=== PATIENT | female | born 1955 | race Caucasian/White ===

== ENCOUNTER → 2021-03-08 10:07 | Outpatient (CLI) | payer MEDICARE, OTHER, SELFPAY ==
[2021-03-08 19:20] LABS: Alanine Aminotransferase 17 IU/L (<35); Albumin 4.2 g/dL (3.5-5.0); Albumin Globulin Ratio 1.6 (1.0-2.8); Alkaline Phosphatase 91 U/L (38-126); Aspartate Aminotransferase 25 IU/L (14-36); BUN Creatinine Ratio 20.3 (6-22); Bilirubin Total 0.7 mg/dL (0.2-1.3); Blood Urea Nitrogen 13 mg/dL (7-17); Calcium 10.1 mg/dL (8.4-10.2); Carbon Dioxide 31 mmol/L (22-32); Chloride 102 mmol/L (98-107); Cholesterol 189 mg/dL (140-199); Estimated Glomerular Filt Rate > 60.0 mL/min (>60); Globulin 2.6 g/dL (1.7-4.1); Glucose 101 mg/dL (80-110); HDL Cholesterol 81 mg/dL (40-60); HEMOLYSIS < 15 (0-50); LDL Cholesterol Calculated 95 mg/dL (<100); Potassium 4.7 mmol/L (3.4-5.1); Sodium 134 mmol/L (137-145); Total Protein 6.8 g/dL (6.3-8.2); Triglycerides 65 mg/dL (35-150)
[2021-03-08 19:33] LABS: Add Manual Diff / Slide Review NO; Basophils Absolute Auto 100 /uL (0-100); Basophils Percent Auto 1.2 % (0-2); Eosinophils Absolute Auto 200 /uL (0-450); Eosinophils Percent Auto 2.4 % (2-4); Hematocrit 39.1 % (36-46); Hemoglobin 12.7 g/dL (12.0-16.0); Lymphocytes Absolute Auto 1600 /uL (1100-4500); Lymphocytes Percent Auto 23.1 % (25-40); Mean Corpuscular HGB Conc 32.6 % (30-36); Mean Corpuscular Hemoglobin 26.8 PG (26-34); Mean Corpuscular Volume 82.4 fL (80-100); Monocytes Absolute Auto 600 /uL (0-900); Monocytes Percent Auto 8.1 % (3-14); Neutrophils Absolute Auto 4600 /uL (1500-7000); Neutrophils Percent Auto 65.2 % (50-75); Platelet Count 280 X10^3/uL (150-400); Red Blood Cell Count 4.74 X10^6/uL (4.0-5.2); Red Cell Distribution Width 14.2 % (11.6-14.8); White Blood Cell Count 7.1 X10^3/uL (4.5-11.0)
== END ==
PROVIDERS: PCP Physician Assistant; Referring Provider Physician Assistant; Visit Provider Physician Assistant
DX: I25.118 Atherosclerotic heart disease of native coronary artery with other forms of angina pectoris (principal); E78.5 Hyperlipidemia, unspecified; I10 Essential (primary) hypertension
CPT/HCPCS: 80053; 80061; 85025

== ENCOUNTER → 2021-07-06 11:55 | Outpatient (CLI) | payer MEDICARE, OTHER, SELFPAY ==
[2021-07-06 19:10] LABS: BUN Creatinine Ratio 20.2 (6-22); Blood Urea Nitrogen 17 mg/dL (7-17); Calcium 9.6 mg/dL (8.4-10.2); Carbon Dioxide 27 mmol/L (22-32); Chloride 98 mmol/L (98-107); Estimated Glomerular Filt Rate > 60 mL/min (>60); Glucose 148 mg/dL (80-110); HEMOLYSIS < 15 (0-50); Potassium 4.8 mmol/L (3.4-5.1); Sodium 134 mmol/L (137-145)
== END ==
PROVIDERS: PCP Physician Assistant; Visit Provider Physician Assistant
DX: E87.1 Hypo-osmolality and hyponatremia (principal)
CPT/HCPCS: 80048

== ENCOUNTER → 2021-07-15 10:49 | Outpatient (CLI) | payer MEDICARE, OTHER, SELFPAY ==
[2021-07-15 20:04] LABS: Alanine Aminotransferase 19 IU/L (<35); Albumin 4.4 g/dL (3.5-5.0); Albumin Globulin Ratio 1.7 (1.0-2.8); Alkaline Phosphatase 85 U/L (38-126); Aspartate Aminotransferase 31 IU/L (14-36); BUN Creatinine Ratio 22.2 (6-22); Bilirubin Total 0.8 mg/dL (0.2-1.3); Blood Urea Nitrogen 14 mg/dL (7-17); Calcium 9.6 mg/dL (8.4-10.2); Carbon Dioxide 25 mmol/L (22-32); Chloride 101 mmol/L (98-107); Estimated Glomerular Filt Rate > 60 mL/min (>60); Globulin 2.6 g/dL (1.7-4.1); Glucose 98 mg/dL (80-110); HEMOLYSIS 25 (0-50); Potassium 4.7 mmol/L (3.4-5.1); Sodium 133 mmol/L (137-145)
[2021-07-15 20:05] LABS: Hemoglobin A1C% w Est Avg Glu 5.9 % (4.0-6.0)
[2021-07-20 13:09] LABS: Osmolality Urine 442 mOsmol/kg (.); Osmolality, Serum 278 mOsmol/kg (280-301)
== END ==
PROVIDERS: PCP Physician Assistant; Visit Provider Physician Assistant
DX: R73.09 Other abnormal glucose (principal); E87.1 Hypo-osmolality and hyponatremia
CPT/HCPCS: 80053; 83036; 83930; 83935

== ENCOUNTER → 2021-08-10 08:49 | Outpatient (CLI) | payer MEDICARE, OTHER, SELFPAY ==
[2021-08-10 19:41] LABS: BUN Creatinine Ratio 23.2 (6-22); Blood Urea Nitrogen 16 mg/dL (7-17); Calcium 9.8 mg/dL (8.4-10.2); Carbon Dioxide 29 mmol/L (22-32); Chloride 99 mmol/L (98-107); Estimated Glomerular Filt Rate > 60 mL/min (>60); Glucose 105 mg/dL (80-110); HEMOLYSIS < 15 (0-50); Potassium 4.7 mmol/L (3.4-5.1); Sodium 136 mmol/L (137-145)
[2021-08-10 20:12] LABS: Cortisol AM (Before 10AM) 8.72 ug/dL (4.46-22.7)
[2021-08-10 20:13] LABS: TSH w/ Reflex to FT4 0.78 uIU/mL (0.47-4.68)
== END ==
PROVIDERS: PCP Physician Assistant; Visit Provider Physician Assistant
DX: E78.5 Hyperlipidemia, unspecified (principal); E87.1 Hypo-osmolality and hyponatremia
CPT/HCPCS: 80048; 82533; 84443

== ENCOUNTER → 2021-08-17 10:02 | Outpatient (CLI) | payer MEDICARE, OTHER, SELFPAY ==
--- NOTE | 2021-08-17 11:39 | DI.CT.S_ITS ---
PROCEDURE: CT ABDOMEN PELVIS W CON INDICATIONS: abdominal mass, epigastric area, asymptomatic TECHNIQUE: After the administration of oral and IV contrast, axial sections were acquired from the lung bases to the pubic symphysis. Coronal and sagittal reformats were performed. For radiation dose reduction, the following was used: automated exposure control, adjustment of mA and/or kV according to patient size. COMPARISON: None. FINDINGS: Image quality: Excellent. Lung bases: Unremarkable. Heart: No significant findings. ABDOMEN: Liver: Liver demonstrates innumerable low-attenuation foci, the largest in the left lobe measuring 1.4 cm in consistent with simple cyst. Gallbladder: Unremarkable. Biliary ducts: Unremarkable. Pancreas: Unremarkable. Spleen: Unremarkable. Adrenal Glands: Unremarkable. Kidneys and Ureters: Unremarkable. Stomach and Bowel: Stomach, small bowel loops, and colon are unremarkable. Peritoneum: No abnormal intraperitoneal fluid. No free air. Ventral Wall: No hernia. Abdominal Nodes: No retroperitoneal or mesenteric adenopathy by size criteria. Vessels: Aorta and inferior vena cava are normal in size. PELVIS: Pelvic Organs: Unremarkable. Bladder: Unremarkable. Pelvic Nodes: No enlarged lymph nodes. Miscellaneous: No inguinal hernias are seen. Bones: Unremarkable. IMPRESSION: No hernia. Scattered stool without obstruction. Multiple low-attenuation hepatic foci with the larger foci most suggestive of simple cysts. Smaller foci are too small to definitively characterize although statistically likely represent cysts. Dictated by: Apryl Borjas M.D. on 08/17/2021 at 15:09 Approved by: Apryl Borjas M.D. on 08/17/2021 at 15:12
== END ==
PROVIDERS: PCP Physician Assistant; Referring Provider Physician Assistant; Visit Provider Physician Assistant
DX: R19.06 Epigastric swelling, mass or lump (principal)
CPT/HCPCS: 74177

== ENCOUNTER → 2021-11-29 07:01 | Outpatient (CLI) | payer MEDICARE, OTHER, SELFPAY ==
[2021-11-29 20:46] LABS: COVID19 - ORCAS (NP or Nasal) Negative (Negative)
== END ==
PROVIDERS: PCP Physician Assistant; Visit Provider Family Medicine
DX: Z20.822 Contact with and (suspected) exposure to COVID-19 (principal); Z01.812 Encounter for preprocedural laboratory examination
CPT/HCPCS: C9803; U0003

== ENCOUNTER 2021-11-30 10:46 | Day surgery (SDC) | payer MEDICARE, OTHER, SELFPAY ==
[2021-11-26 12:28] VITALS: BMI 20.5
[2021-11-30] MEDS: LACTATED RINGERS 1,000 ML 42 ML IV (10:56)
[2021-11-30 11:01] VITALS: BP 163/91; PULSE 66; RESP 17; TEMP 36.4; O2SAT 98; BMI 20.5
--- NOTE | 2021-11-30 11:08 | SUR.OPER ---
Supine on padded OR bed, head on pillow, arms padded and tucked at sides, legs uncrossed, safety belt at thigh, tape over blanket over lower legs .
--- NOTE | 2021-11-30 11:10 | PM.HP.1 ---
History of Present Illness History of Present Illness Date Patient Seen: 11/30/21 Time Patient Seen: 11:10 Chief complaint: Open Ventral Hernia Repair w/Mesh Narrative: Arturo is a 66-year-old woman with an epigastric hernia versus a cyst. Although the CT did not show definitive hernia I believe she has a small hernia. See office note from August for details. Patient History Medical History (Updated 11/26/21 @ 12:30 by Natalya Xiao RN) Arthritis Easy bruisability Encounter for hepatitis C screening test for low risk patient History of chest pain Screening for breast cancer Screening for cervical cancer Screening for colon cancer Screening for deficiency anemia Urinary frequency Wears glasses Surgical History (Updated 11/26/21 @ 12:31 by Natalya Xiao RN) Anesthesia History of orthopedic surgery (2015) History of orthopedic surgery (2018) S/P CABG (coronary artery bypass graft) (~2000) Family & Social History Family History Father Congestive heart failure Mother Cancer Social History: household members spouse Tobacco & Substance use: Smoking Status Former smoker alcohol intake current alcohol intake frequency 0-2 drinks per day Substance Use Type does not use Meds Home Medications and Allergies Home Medications Medication Instructions Recorded Confirmed Type aspirin 325 mg tablet 0.5 tab PO HS ##0 06/02/16 09/13/21 History atorvastatin 40 mg tablet 40 mg PO HS #90 tabs 07/15/21 09/13/21 Rx losartan 100 mg tablet 100 mg PO DAILY #30 tabs 08/10/21 09/13/21 Rx cholecalciferol (vitamin D3) 50 50 mcg PO DAILY 11/30/21 11/30/21 History mcg (2,000 unit) capsule (Vitamin D3) Allergies Allergy/AdvReac Type Severity Reaction Status Date / Time No Known Drug Allergies Allergy Unverified 09/13/21 09:55 Exam Narrative Exam Narrative: Epigastric hernia Assessment & Plan Assessment and plan (1) Abdominal mass: Qualifiers: Abdominal location: epigastric Qualified Code(s): R19.06 - Epigastric swelling, mass or lump Status: Acute Plan Epigastric mass, most likely a hernia, less likely a cyst. We reviewed the risks and benefits of hernia repair versus removal and she would like to proceed. Time Spent With Patient Critical Care time: I spent a total of [] minutes of critical care time on this patient's care today; this time is exclusive of procedural time.
[2021-11-30] MEDS: CEFAZOLIN 2 GM/100 ML PREMIX 100 ML IV (11:45)
--- NOTE | 2021-11-30 11:47 | SUR.OPER ---
Supine on padded OR bed, head on pillow, arms secured on padded arm boards at <90 degrees abduction, legs uncrossed, safety belt at thigh, tape over blanket over lower legs.
[2021-11-30] MEDS: BUPIVACAINE 0.5% W/ EPI (PF) 30 ML VIAL INJ (11:56)
--- NOTE | 2021-11-30 12:17 | PM.OP.1 ---
Operative Date/Time/Diagnoses Date of procedure: 11/30/21 Time of procedure: 12:18 Pre-op diagnosis: Epigastric hernia Post-op diagnosis: same Procedure & Clinicians Procedure: Open epigastric hernia repair with mesh Same procedure as scheduled: Yes Surgeon: Darrius Dickinson Operative Notes Procedure in detail: Ancef was administered. The patient was brought to the operating room, placed on the table in the supine position and general anesthesia was induced. The abdomen was prepped and draped in the usual fashion. A time-out was performed. A 5 cm transverse incision was made over the mass which was about 3 finger breaths above the umbilicus.. We dissected down through the subcutaneous tissue until we encountered fatty hernia. We traced the hernia down to the fascia where we found a very small, roughly 5 mm epigastric hernia. The fatty contents were amputated and pushed back into the abdomen. We then injected some local into the fascia and close the defect with 2 interrupted 2-0 Vicryl sutures. We then cleared the subcutaneous adipose tissue off the fascia in a circumferential manner roughly 1 cm in each direction. A piece of polypropylene mesh was trimmed to fit over the fascial closure and secured with Tisseel. The skin was closed with multiple interrupted 3-0 Vicryl dermal sutures followed by a running 4 Monocryl subcuticular closure. Steri-Strips were applied and an abdominal binder was applied. EBL: 5 mL Post-operative Condition: stable Disposition: PACU
[2021-11-30 12:24] VITALS: BP 156/86; PULSE 78; RESP 20; TEMP 36.3; O2SAT 95
[2021-11-30 12:29] VITALS: BP 142/83; PULSE 79; RESP 13; O2SAT 96
[2021-11-30 12:34] VITALS: BP 140/83; PULSE 72; RESP 129; O2SAT 98
[2021-11-30 12:45] VITALS: BP 134/80; PULSE 65; RESP 12; TEMP 36.3; O2SAT 98
== END 2021-11-30 13:20 | disposition home or self-care (01) ==
PROVIDERS: PCP Physician Assistant; Referring Provider Surgery; Visit Provider Surgery
PROC: (CPT 49570; principal; 2021-11-30 11:15)
DX: K43.9 Ventral hernia without obstruction or gangrene (principal); Z95.1 Presence of aortocoronary bypass graft
CPT/HCPCS: 49570; 93005; 93010; J0690; J1100; J2405; J2704; J3010

== ENCOUNTER → 2022-09-08 13:19 | Outpatient (CLI) | payer MEDICARE, OTHER, SELFPAY ==
[2022-09-08 20:32] LABS: Alanine Aminotransferase 20 IU/L (<35); Albumin 3.9 g/dL (3.5-5.0); Albumin Globulin Ratio 1.6 (1.0-2.8); Alkaline Phosphatase 94 U/L (38-126); Aspartate Aminotransferase 29 IU/L (14-36); BUN Creatinine Ratio 20.8 (6-22); Bilirubin Total 0.5 mg/dL (0.2-1.3); Blood Urea Nitrogen 15 mg/dL (7-17); Calcium 9.1 mg/dL (8.4-10.2); Carbon Dioxide 26 mmol/L (22-32); Chloride 97 mmol/L (98-107); Estimated Glomerular Filt Rate > 60 mL/min (>60); Globulin 2.4 g/dL (1.7-4.1); Glucose 125 mg/dL (80-110); HEMOLYSIS < 15 (0-50); Potassium 4.4 mmol/L (3.4-5.1); Sodium 131 mmol/L (137-145); Total Protein 6.3 g/dL (6.3-8.2)
== END ==
PROVIDERS: PCP Physician Assistant; Visit Provider Physician Assistant
DX: E78.5 Hyperlipidemia, unspecified (principal); E87.1 Hypo-osmolality and hyponatremia; I10 Essential (primary) hypertension
CPT/HCPCS: 80053

== ENCOUNTER → 2022-12-06 16:53 | Outpatient (CLI) | payer MEDICARE, OTHER, SELFPAY | PROVIDERS: PCP Physician Assistant; Visit Provider Physician Assistant | DX: S81.812A Laceration without foreign body, left lower leg, initial encounter (principal) | CPT/HCPCS: 87070; 87075; 87077; 87147; 87186; 87205 ==

== ENCOUNTER → 2022-12-14 10:13 | Outpatient (CLI) | payer MEDICARE, OTHER, SELFPAY | PROVIDERS: PCP Physician Assistant Medical; Visit Provider Physician Assistant Medical | DX: T14.8XXA Other injury of unspecified body region, initial encounter (principal); W50.3XXA Accidental bite by another person, initial encounter | CPT/HCPCS: 87070; 87075; 87205 ==

== ENCOUNTER → 2023-04-04 08:25 | Outpatient (CLI) | payer MEDICARE, OTHER, SELFPAY ==
[2023-04-04 19:37] LABS: Alanine Aminotransferase 21 IU/L (<35); Albumin 4.4 g/dL (3.5-5.0); Albumin Globulin Ratio 1.5 (1.0-2.8); Alkaline Phosphatase 123 U/L (38-126); Aspartate Aminotransferase 38 IU/L (14-36); Bilirubin Total 1.2 mg/dL (0.2-1.3); Blood Urea Nitrogen 13 mg/dL (7-17); Calcium 9.8 mg/dL (8.4-10.2); Carbon Dioxide 24 mmol/L (22-32); Chloride 100 mmol/L (98-107); Cholesterol 169 mg/dL (140-199); Estimated Glomerular Filt Rate > 60 mL/min (>60); Globulin 2.9 g/dL (1.7-4.1); Glucose 107 mg/dL (80-110); HDL Cholesterol 86 mg/dL (40-60); LDL Cholesterol Calculated 69 mg/dL (<100); Potassium 4.2 mmol/L (3.4-5.1); Sodium 134 mmol/L (137-145); Total Protein 7.3 g/dL (6.3-8.2); Triglycerides 72 mg/dL (35-150)
[2023-04-04 19:40] LABS: HEMOLYSIS 85 (0-50)
[2023-04-06 19:00] LABS: Hep C Virus Ab w/Reflex Quant NEGATIVE s/c (NEGATIVE)
== END ==
PROVIDERS: PCP Physician Assistant Medical; Visit Provider Physician Assistant Medical
DX: E78.00 Pure hypercholesterolemia, unspecified (principal); Z12.11 Encounter for screening for malignant neoplasm of colon; Z12.12 Encounter for screening for malignant neoplasm of rectum; I10 Essential (primary) hypertension; I25.10 Atherosclerotic heart disease of native coronary artery without angina pectoris
CPT/HCPCS: 80053; 80061; 86803

== ENCOUNTER → 2024-08-20 09:24 | Outpatient (CLI) | payer MEDICARE, OTHER, SELFPAY ==
[2024-08-20 21:14] LABS: Hemoglobin A1C% w Est Avg Glu 5.6 % (4.0-6.0)
[2024-08-20 21:15] LABS: Alanine Aminotransferase 17 IU/L (<35); Albumin 4.4 g/dL (3.5-5.0); Albumin Globulin Ratio 1.8 (1.0-2.8); Alkaline Phosphatase 87 U/L (38-126); Blood Urea Nitrogen 14 mg/dL (7-17); Calcium 9.5 mg/dL (8.4-10.2); Carbon Dioxide 26 mmol/L (22-32); Chloride 101 mmol/L (98-107); Cholesterol 173 mg/dL (140-199); Estimated Glomerular Filt Rate > 60 mL/min (>60); Globulin 2.5 g/dL (1.7-4.1); Glucose 97 mg/dL (70-99); HDL Cholesterol 84 mg/dL (40-60); HEMOLYSIS 21 (0-50); Potassium 4.8 mmol/L (3.4-5.1); Sodium 133 mmol/L (137-145); Total Protein 6.9 g/dL (6.3-8.2); Triglycerides 51 mg/dL (35-150)
[2024-08-20 21:41] LABS: TSH w/ Reflex to FT4 1.07 uIU/mL (0.47-4.68)
== END ==
PROVIDERS: PCP Physician Assistant Medical; Visit Provider Physician Assistant Medical
DX: I10 Essential (primary) hypertension (principal); Z13.1 Encounter for screening for diabetes mellitus; I25.10 Atherosclerotic heart disease of native coronary artery without angina pectoris; Z12.11 Encounter for screening for malignant neoplasm of colon; Z12.12 Encounter for screening for malignant neoplasm of rectum; I25.118 Atherosclerotic heart disease of native coronary artery with other forms of angina pectoris; E78.5 Hyperlipidemia, unspecified; E87.1 Hypo-osmolality and hyponatremia
CPT/HCPCS: 80053; 80061; 83036; 84443